=== PATIENT | male | born 1985 | race Caucasian/White ===

== ENCOUNTER 2017-07-04 16:26 | Emergency (ER) | payer BC ==
[~2017-07-04] VITALS: Ht 172.7 cm; Wt 95.0 kg
[~2017-07-04 16:26] MED LIST: ONDA1TAB16 PO; PROM25SU8 PO
[2017-07-04 16:28] VITALS: BP 160/95; PULSE 98; RESP 18; TEMP 98.8; O2SAT 100
--- NOTE | 2017-07-04 17:11 | PD ---
HPI Chief Complaint: Syncope/Near-Syncope Time Seen by Provider: 16:53 Travel History International Travel<30 days: No Contact w/Intl Traveler<30days: No Traveled to known affect area: No History of Present Illness HPI 32-year-old male presents emergency department for evaluation of lightheadedness , unsteadiness after a fall that occurred Saturday. Patient states that he pulled his groin and had what he describes as a vagal syncopal episode because of pain resulting in a falling from a seated position and onto the ground. Patient states that he did hit his head and his describes him as becoming very rigid and his face turning purple. Says that he stopped breathing for several seconds before symptoms resolved. Says that [facility] was called for evaluation but decided not to go to the hospital. Patient says now he feels anxious, jittery. Says that he has intermittent episodes of "just not feeling right" and has felt fatigue since the fall. He denies nausea or vomiting. Denies headache. Denies personality changes. Denies visual changes. Patient says he is otherwise healthy. 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 [facility] Past Medical History Diminished Hearing: No Tetanus Vaccination: Unknown ?: Not Social History Alcohol Use: Yes (socially) Tobacco Use: Yes (occ a cigar) Substance Use: No Allergies-Medications (Allergen,Severity, Reaction): Coded Allergies: tetracaine (Unverified Allergy, Intermediate, "PASSED OUT", 07/04/17) Uncoded Allergies: EYE NUMBING MEDICATION (Allergy, Mild, 12/27/11) Reported Meds & Prescriptions Reported Meds & Active Scripts Active No Active Prescriptions or Reported Medications Review of Systems Except as stated in HPI: all other systems reviewed are Neg Physical Exam Narrative GENERAL: Well developed, well-nourished no apparent distress SKIN: Focused skin assessment warm/dry. HEAD: Atraumatic. Normocephalic. EYES: Pupils equal and round. No scleral icterus. No injection or drainage. PERRLA, EOMI ENT: No nasal bleeding or discharge. Mucous membranes pink and moist. NECK: Trachea midline. No JVD. No midline tenderness CARDIOVASCULAR: Regular rate and rhythm. No murmur appreciated. RESPIRATORY: No accessory muscle use. Clear to auscultation. Breath sounds equal bilaterally. MUSCULOSKELETAL: No obvious deformities. No clubbing. No cyanosis. No edema. BACK: No CVA tenderness. No rash. No point tenderness on palpation of the spine. NEUROLOGICAL: Awake and alert. Cranial nerves II through XII intact. Motor and sensory grossly within normal limits. Five out of 5 muscle strength in all muscle groups. Normal speech. PSYCHIATRIC: Appropriate mood and affect; insight and judgment normal. Data Data Last Documented VS Vital Signs Date Time Temp Pulse Resp B/P (MAP) Pulse Ox O2 Delivery O2 Flow Rate FiO2 07/04/17 19:11 07/04/17 18:20 78 20 78 85 07/04/17 16:33 97 Room Air 07/04/17 16:[address] Brain W/O Iv Contrast(Rout) (07/04/17 ) Orthostatic Vital Signs (07/04/17 17:55) Blood Glucose (07/04/17 17:55) Ed Discharge Order (07/04/17 18:49) MDM Medical Decision Making Medical Screen Exam Complete: Yes Emergency Medical Condition: Yes Differential Diagnosis concussion, TBI, ICH, SAH Narrative Course 32-year-old male presents emergency department for evaluation of lightheadedness , unsteadiness after a fall that occurred Saturday. Patient states that he pulled his groin and had what he describes as a vagal syncopal episode because of pain resulting in a falling from a seated position and onto the ground. Patient states that he did hit his head and his describes him as becoming very rigid and his face turning purple. Says that he stopped breathing for several seconds before symptoms resolved. Says that [facility] was called for evaluation but decided not to go to the hospital. Patient says now he feels anxious, jittery. Says that he has intermittent episodes of "just not feeling right" and has felt fatigue since the fall. He denies nausea or vomiting. Denies headache. Denies personality changes. Denies visual changes. Patient says he is otherwise healthy. 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 Vital signs are stable. Physical exam findings are reassuring. No focal deficits. Patient does appear rather anxious however. BGL 107, negative orthostatics. Last Impressions Head CT 07/04/17 0000 Signed Impressions: Service Date/Time: June 18:01 - CONCLUSION: No acute disease. Yanick F. Tocci, MD Patient's history and physical most consistent with post concussion syndrome. He is advised to take 1 week off from work as he does work in air traffic control. He should avoid excessive activity until symptoms resolve. Monitor for worsening symptoms. Follow-up the primary care physician. Consider neuro eval if symptoms persists. Return to emergency department worsening or persistent symptoms. Diagnosis Primary Impression: Post concussion syndrome Referrals: Primary Care Physician Departure Forms: Tests/Procedures, Work Release Enter return to work date: July 11, 2017 Additional Instructions: Avoid excessive activity until your symptoms resolved. I recommend avoid excessive stimulation into your symptoms resolve. Scripts No Active Prescriptions or Reported Meds Disposition: 01 DISCHARGE HOME Condition: Stable Yandy De Leon July 04, 2017 17:11
[2017-07-04 18:20] VITALS: BP_SYST 138; BP_SYST 166; BP_DIAS 79; BP_DIAS 89; RESP 20
--- NOTE | 2017-07-04 18:22 | RADRPT ---
EXAM DATE/TIME: 07/04/2017 18:01 [facility] COMPARISON: No previous studies available for comparison. INDICATIONS : Trauma; fall four days ago. RADIATION DOSE: 53.37 CTDIvol (mGy) MEDICAL HISTORY : None SURGICAL HISTORY : None. ENCOUNTER: Initial ACUITY: 1 day PAIN SCALE: 4/10 LOCATION: cranial TECHNIQUE: Multiple contiguous axial images were obtained of the head. Using automated exposure control and adj ustment of the mA and/or kV according to patient size, radiation dose was kept as low as reasonably a chievable to obtain optimal diagnostic quality images. DICOM format image data is available electro nically for review and comparison. FINDINGS: CEREBRUM: The ventricles are normal for age. No evidence of midline shift, mass lesion, hemorrhage or acute in farction. No extra-axial fluid collections are seen. POSTERIOR FOSSA: The cerebellum and brainstem are intact. The 4th ventricle is midline. The cerebellopontine angle i s unremarkable. EXTRACRANIAL: The visualized portion of the orbits is intact. SKULL: The calvaria is intact. No evidence of skull fracture. CONCLUSION: No acute disease. Yanick Thapa MD on July 04, 2017 at 18:19 Board Certified Radiologist. This report was verified electronically.
== END 2017-07-04 19:15 | disposition home or self-care (01) ==
LOC: PHEFT 16:26
DX: F07.81 Postconcussional syndrome (principal); F17.290 Nicotine dependence, other tobacco product, uncomplicated; Z88.8 Allergy status to other drugs, medicaments and biological substances
CPT/HCPCS: 70450; 99283